=== PATIENT | male | born 1980 | race Caucasian/White ===

== ENCOUNTER 2022-11-03 15:55 | Inpatient (IN) | payer OTHER ==
[~2022-11-03] VITALS: Ht 175.3 cm; Wt 95.3 kg
[~2022-11-03 15:55] MED LIST: CATAFLAM50 MG PO; CIPRO500 MG PO; RECTICARE30 GM TP; TRAM1TAB PO; VASOTEC5 MG PO
[2022-11-03] MEDS ORDERED: ZESTRIL20 MG PO (16:22)
[2022-11-09] MEDS ORDERED: CIPRO500 MG PO (09:28)
[2022-11-09] MEDS ORDERED: METRONIDAZOLE500 MG PO (09:29)
[2022-11-09] MEDS ORDERED: PERCOCET 5-3251 EACH PO (09:29)
[2022-11-09] MEDS ORDERED: HIBICLENS118 ML TOP (13:36)
== END 2022-11-09 14:20 | disposition home or self-care (01) | DRG 349 ==
LOC: ER 15:55 → SURG 21:08
PROVIDERS: ADMIT Surgery; ATTEND Surgery
PROC: 0DQQ0ZZ Repair Anus, Open Approach (ICD-10-PCS; principal; 2022-11-05)
PROC: 0J9B0ZZ Drainage of Perineum Subcutaneous Tissue and Fascia, Open Approach (ICD-10-PCS; 2022-11-05)
PROC: 3E0T3BZ Introduction of Anesthetic Agent into Peripheral Nerves and Plexi, Percutaneous Approach (ICD-10-PCS; 2022-11-05)
DX: K61.39 Other ischiorectal abscess (principal); I10 Essential (primary) hypertension; E66.8 Other obesity; Z20.822 Contact with and (suspected) exposure to COVID-19

== ENCOUNTER 2022-12-30 15:26 | Inpatient (IN) | payer OTHER ==
[~2022-12-30] VITALS: Ht 152.4 cm; Wt 80.7 kg
[~2022-12-30 15:26] MED LIST changes: +HIBICLENS118 ML TOP; +METRONIDAZOLE500 MG PO; +PERCOCET 5-3251 EACH PO; +ZESTRIL20 MG PO
[2023-01-02] MEDS ORDERED: AMOX1TAB5 PO (12:41)
[2023-01-02] MEDS ORDERED: TRAM1TAB98 PO (12:42)
[2023-01-02] MEDS ORDERED: PROTONIX40 MG PO (12:42)
== END 2023-01-02 16:21 | disposition home or self-care (01) | DRG 349 ==
LOC: ER 15:26 → SURH 17:18 → SURG 17:18
PROVIDERS: ADMIT Surgery; ATTEND Surgery
PROC: 0DBP7ZZ Excision of Rectum, Via Natural or Artificial Opening (ICD-10-PCS; 2022-12-31)
PROC: 0D9Q7ZZ Drainage of Anus, Via Natural or Artificial Opening (ICD-10-PCS; principal; 2022-12-31 14:45)
DX: K60.3 Anal fistula (principal); I11.9 Hypertensive heart disease without heart failure; E66.9 Obesity, unspecified; B96.1 Klebsiella pneumoniae [K. pneumoniae] as the cause of diseases classified elsewhere; B96.7 Clostridium perfringens [C. perfringens] as the cause of diseases classified elsewhere; B96.89 Other specified bacterial agents as the cause of diseases classified elsewhere